=== PATIENT | female | born 1970 | race Caucasian/White ===

== ENCOUNTER 2020-02-04 20:55 | Emergency (ER) | payer SELFPAY ==
[2020-02-04 21:28] VITALS: BP 144/88; PULSE 105; RESP 18; TEMP 36.8; O2SAT 99; BMI 32.3
[2020-02-04 21:31] VITALS: RESP 18
--- NOTE | 2020-02-04 21:40 | XR_ITS ---
WS: [id number] EXAM: RIGHT ANKLE: 3 VIEWS DATE OF EXAMINATION: 02/04/2020, 2145 hours COMPARISON: None. HISTORY: Patient is 50 years old with ankle pain. [place] FINDINGS: There are changes consistent with a trimalleolar fracture. The fibular fracture is considered Donahue B . The distal component is offset by about 50% laterally and slightly angulated. The medial malleolus fragment stays with the talus and is slightly gap along the fracture plane. There is slight lateral s ubluxation of the talus in relation to the tibial plafond by about 10%. There is a fracture of the po sterior lateral tibial plafond and with slight articular surface step off. No subtalar joint dislocat ion is seen. Soft tissue swelling around the ankle is seen. Enthesopathy reaction at the level of the Achilles tendon insertion on the calcaneus as well as a small heel spur plantar aponeurosis insertio n. XR/XR ankle RT min 3V* [id number] IMPRESSION: Trimalleolar fracture of the ankle as described.
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
[2020-02-04] MEDS: ondansetron 4 MG Tablet PO (22:21)
[2020-02-04] MEDS: ketorolac 30 mg/mL INJ IM (22:21)
[2020-02-04] MEDS: morphine 4 mg/mL SDV 1 mL IM (22:21)
== END 2020-02-04 23:11 | disposition home or self-care (01) ==
PROVIDERS: Emergency Provider Nurse Practitioner Family
DX: S82.851A Displaced trimalleolar fracture of right lower leg, initial encounter for closed fracture (principal); X50.1XXA Overexertion from prolonged static or awkward postures, initial encounter
CPT/HCPCS: 12345; 29505; 73610; 96372; 99281; 99283; E0114; J1885; J2270; Q0162